=== PATIENT | male | born 1960 | race Hispanic/Latino ===

== ENCOUNTER 2024-12-14 20:43 | Emergency (ER) | payer OTHER ==
--- NOTE | 2024-12-14 21:40 | RAD REPORT ---
EXAMINATION: Femur Left VIEWS: Four views CLINICAL INDICATION: Male, 63 years old. PAIN COMPARISON: No prior exams IMPRESSION: No acute fracture. No acute soft tissue abnormality.
--- NOTE | 2024-12-14 22:14 | ER ---
Nurse's Notes [facility] Name: Kam Maguire Jr Age: 63 yrs Sex: Male : 1960 Arrival Date: 12/14/2024 Time: 20:43 Bed 23 Private MD: Diagnosis: Pain in left hip Presentation: 12/14 21:02 Chief complaint: Patient states: LEFT HIP PAIN X 2 MONTHS, PAIN WORSE YESTERDAY AND hb TODAY. PT DENIES FALLING OR TRAUMA. Coronavirus screen: At this time, the client does not indicate any symptoms associated with coronavirus-19. Ebola Screen: No symptoms or risks identified at this time. Initial Sepsis Screen: Does the patient meet any 2 criteria? No. Patient's initial sepsis screen is negative. Does the patient have a suspected source of infection? No. Patient's initial sepsis screen is negative. Risk Assessment: Do you want to hurt yourself or someone else? Patient reports no desire to harm self or others. Onset of symptoms is unknown. 21:02 Method Of Arrival: Ambulatory hb 21:02 Acuity: JOSE 3 hb Triage Assessment: 21:05 General: Appears in no apparent distress. uncomfortable, Behavior is calm, cooperative, hb appropriate for age. Pain: Complains of pain in left hip Pain currently is 9 out of 10 on a pain scale. Musculoskeletal: Tenderness present in left hip Reports pain in left hip Pain is 9 out of 10 on a pain scale. Historical: - Allergies: 21:05 No Known Allergies; hb - PMHx: 21:05 Myocardial infarction; Hypertensive disorder; Hypercholesterolemia; hb - PSHx: 21:05 CARDIAC STENTS; hb - Immunization history:: Adult Immunizations unknown. - Infectious Disease History:: Denies. - Social history:: Smoking status: Patient reports the use of cigarette tobacco products, smokes one-half pack cigarettes per day. Screenin:45 [facility] ED Fall Risk Assessment (Adult) History of falling in the last 3 months, kj2 including since admission No falls in past 3 months (0 pts) Confusion or Disorientation No (0 pts) Intoxicated or Sedated No (0 pts) Impaired Gait No (0 pts) Mobility Assist Device Used No (0 pt) Altered Elimination No (0 pt) Score/Fall Risk Level 0 - 2 = Low Risk Maintained a safe environment, Hourly rounding (assess needs \T\ fall precautionary measures) done. Abuse screen: Denies threats or abuse. Denies injuries from another. Nutritional screening: No deficits noted. Tuberculosis screening: No symptoms or risk factors identified. Assessment: 21:45 General: Appears in no apparent distress. Behavior is cooperative. Pain: Complains of kj2 pain in left hip. Neuro: Level of Consciousness is awake, alert, obeys commands, Oriented to person, place, time, situation. Cardiovascular: Patient's skin is warm and dry. Respiratory: Airway is patent Respiratory effort is even, unlabored. GI: No signs and/or symptoms were reported involving the gastrointestinal system. : No signs and/or symptoms were reported regarding the genitourinary system. 22:33 Reassessment: Patient appears in no apparent distress at this time. Patient and/or kj2 family updated on plan of care and expected duration. Pain level reassessed. Patient is alert, oriented x 3, equal unlabored respirations, skin warm/dry/pink. Vital Signs: 21:02 BP 144 / 80; Pulse 64; Resp 16; Temp 98.5; Pulse Ox 98% on R/A; Pain 9/10; hb 22:36 BP 138 / 78; Pulse 82; Resp 18; Temp 98; Pulse Ox 100% on R/A; kj2 21:02 Pain Scale: Adult hb ED Course: 20:46 Patient arrived in ED. im 20:48 Karly Rayo FNP-C [facility]. kb 20:48 Puma Dior MD is Attending Physician. kb 21:05 Triage completed. hb 21:05 Arm band placed on right wrist. hb 21:29 Femur Left XRAY In Process Unspecified. EDMS 21:45 Patient has correct armband on for positive identification. Bed in low position. Call kj2 light in reach. Provided Education on: call light. 22:10 Katiana Pink, ROZINA is Primary Nurse. kj2 22:34 No provider procedures requiring assistance completed. Patient did not have IV access kj2 during this emergency room visit. Administered Medications: 22:18 Drug: HYDROcodone-acetaminophen PO 5 mg-325 mg 1 tabs PO once Route: PO; kj2 22:37 Follow up: Response: No adverse reaction kj2 22:18 Drug: Diazepam PO 5 mg PO once Route: PO; kj2 22:36 Follow up: Response: No adverse reaction kj2 Medication: 22:34 VIS not applicable for this client. kj2 Outcome: 22:14 Discharge ordered by . rani 22:35 Discharged to home ambulatory, kj2 22:35 Condition: stable 22:35 Discharge instructions given to patient, Instructed on discharge instructions, follow up and referral plans. Demonstrated understanding of instructions, follow-up care, 22:39 Patient left the ED. kj2 Signatures: Dispatcher [employer] EDKarly Yao, LOADING CHECKER-C MICHAEL-Brooklyn Lemon, RN RN Naomie Goncalves Krystal, RN RN kj2
--- NOTE | 2024-12-14 22:14 | EDPHYS ---
Physician Documentation [facility] Name: Kam Maguire Jr Age: 63 yrs Sex: Male : 1960 Arrival Date: 12/14/2024 Time: 20:43 Bed 23 Private MD: ED Physician Puma Dior HPI: 12/14 22:12 This 63 yrs old Male presents to ER via Ambulatory with complaints of Hip Pain - Left. kb 22:12 Patient is a 63-year-old male who presents for left hip pain that started months ago kb but got worse yesterday. Denies any injury, fall, trauma. Denies radiation of pain.. Historical: - Allergies: 21:05 No Known Allergies; hb - PMHx: 21:05 Myocardial infarction; Hypertensive disorder; Hypercholesterolemia; hb - PSHx: 21:05 CARDIAC STENTS; hb - Immunization history:: Adult Immunizations unknown. - Infectious Disease History:: Denies. - Social history:: Smoking status: Patient reports the use of cigarette tobacco products, smokes one-half pack cigarettes per day. ROS: 22:12 Constitutional: As per HPI kb Exam: 22:12 Constitutional: This is a well developed, well nourished patient who is awake, alert, kb and in no acute distress. Head/Face: Normocephalic, atraumatic. ENT: Moist Mucous membranes Respiratory: Respirations even and unlabored. No increased work of breathing. Talking in full sentences Skin: Warm, dry with normal turgor. Normal color. Neuro: Awake and alert, GCS 15, oriented to person, place, time, and situation. 22:12 Musculoskeletal/extremity: Extremities: grossly normal except: noted in the left hip: pain, tenderness, ROM: intact in all extremities, Circulation is intact in all extremities. Sensation intact. Weight bearing: able to fully bear weight, Vital Signs: 21:02 BP 144 / 80; Pulse 64; Resp 16; Temp 98.5; Pulse Ox 98% on R/A; Pain 9/10; hb 22:36 BP 138 / 78; Pulse 82; Resp 18; Temp 98; Pulse Ox 100% on R/A; kj2 21:02 Pain Scale: Adult hb MDM: 20:48 Medical Screening Exam initiated kb 22:13 Differential diagnosis: hip fracture, arthritis, strain. Data reviewed: vital signs, kb nurses notes. Historians other than the Patient: Family Member: Sister. Counseling: I had a detailed discussion with the patient and/or guardian regarding the historical points, exam findings, and any diagnostic results supporting the discharge/admit diagnosis, radiology results, the need for outpatient follow up, a orthopedic surgeon, to return to the emergency department if symptoms worsen or persist or if there are any questions or concerns that arise at home. 12/14 21:06 Order name: Femur Left XRAY; Complete Time: 21:47 kb Administered Medications: 22:18 Drug: HYDROcodone-acetaminophen PO 5 mg-325 mg 1 tabs PO once Route: PO; kj2 22:37 Follow up: Response: No adverse reaction kj2 22:18 Drug: Diazepam PO 5 mg PO once Route: PO; kj2 22:36 Follow up: Response: No adverse reaction kj2 Disposition: 12/15 04:00 Co-signature as Attending Physician, Puma Dior MD I agree with the assessment sp4 and plan of care. I reviewed the patient's care provided by the Advanced Practice Provider and agree with the diagnosis and treatment plan. Disposition Summary: 12/14/24 22:14 Discharge Ordered Notes: Location: Home kb Condition: Stable kb Diagnosis - Pain in left hip kb Followup: kb - With: Emergency Department - When: As needed - Reason: Worsening of condition Followup: kb - With: Private Physician - When: 2 - 3 days - Reason: Recheck today's complaints, Continuance of care, Re-evaluation by your physician Discharge Instructions: - Discharge Summary Sheet kb - Musculoskeletal Pain kb - Hip Pain kb Forms: - Medication Reconciliation Form kb - Antibiotic Education kb - Prescription Opioid Use kb - Patient Portal Instructions kb - Leadership Thank You Letter kb Prescriptions: - Diclofenac Sodium 75 mg Oral tablet, delayed release (enteric coated) - take 1 tablet ORAL route 2 times per day As needed; 30 tablet; Refills: 0, kb Product Selection Permitted - orphenadrine citrate 100 mg Oral Tablet Sustained Release - take 1 tablet ORAL route 2 times per day As needed; 20 tablet; Refills: 0, kb Product Selection Permitted Signatures: Dispatcher [employer] Karly Ortiz FNP-C FNP-Ckb Baxter, Heather, RN RN hb Potepalov, Sergey, MD MD sp4 Joesph, Katiana, RN RN kj2
[2024-12-14] MEDS ORDERED: DIAZEPAM 5 MG TABLET ONE (22:16)
[2024-12-14] MEDS ORDERED: HYDROCODONE/APAP 5/325 MG TAB ONE (22:16)
[2024-12-15 06:11] VITALS: BP 138/78; TEMP 98; O2SAT 100
== END 2024-12-14 22:39 | disposition home or self-care (01) ==
LOC: ER 20:43
DX: M25.552 Pain in left hip (principal)
CPT/HCPCS: 73552; 99283